=== PATIENT | male | born 1935 | race Caucasian/White ===

== ENCOUNTER 2016-11-16 10:55 | Emergency (ER) | payer MEDICARE ==
[~2016-11-16] VITALS: Ht 177.8 cm; Wt 77.0 kg
[2016-11-16 10:57] VITALS: BP 150/70; PULSE 65; RESP 18; TEMP 97.7; O2SAT 100
[2016-11-16] MEDS ORDERED: CEPH-460 PO (11:12)
[2016-11-16] MEDS ORDERED: BACT800T5 PO (11:12)
--- NOTE | 2016-11-16 11:14 | PD ---
HPI Chief Complaint: Skin Problem Time Seen by Provider: 11:11 Travel History International Travel<30 days: No Contact w/Intl Traveler<30days: No Traveled to known affect area: No History of Present Illness HPI 80-year-old male with pain swelling and erythema and drainage of the left wrist for 1 day. He's had no fever. Pain is decreased after the wound opened up and started draining. Onset gradual. Location skin. Timing constant. Severity is decreasing. PFSH Past Medical History Chemotherapy: No Diabetes: Yes Social History Tobacco Use: Yes Allergies-Medications (Allergen,Severity, Reaction): Coded Allergies: Penicillin (Verified Allergy, Intermediate, RASH/ITCHING, 11/16/16) Reported Meds & Prescriptions Reported Meds & Active Scripts Active Keflex (Cephalexin) 500 Mg Capsule 500 Mg PO Q6H 7 Days Bactrim DS (Sulfamethoxazole-Trimethoprim) 800-160 Mg Tab 1 Tab PO BID Reported Metformin (Metformin HCl) 1,000 Mg Tab 1,000 Mg PO BIDPC With meals Gemfibrozil 600 Mg Tab 600 Mg PO BIDAC Take 30 minutes prior to breakfast and dinner. Glipizide 10 Mg Tab 10 Mg PO BIDAC Take 30 minutes before a meal Pravastatin 10 Mg Tab 10 Mg PO DAILY Bisoprolol-Hydrochlorothiazide 10-6.25 Mg Tab 1 Tab PO DAILY Allopurinol 300 Mg Tab 300 Mg PO DAILY Lisinopril 5 Mg Tab 5 Mg PO DAILY Review of Systems Except as stated in HPI: all other systems reviewed are Neg General / Constitutional: No: Fever Physical Exam Narrative GENERAL: Well-nourished well-developed 81-year-old male no acute distress SKIN: Focused skin assessment warm/dry. There is about 5 cm and Some erythema along the dorsal aspect of the DRUJ with an open central focus draining minimal pus. Minimal tenderness is present. No crepitus present. No lymphangitic streaking or proximal migration of erythema. HEAD: Atraumatic. Normocephalic. EYES: Pupils equal and round. No scleral icterus. No injection or drainage. ENT: No nasal bleeding or discharge. Mucous membranes pink and moist. NECK: Trachea midline. No JVD. CARDIOVASCULAR: Regular rate and rhythm. No murmur appreciated. RESPIRATORY: No accessory muscle use. Clear to auscultation. Breath sounds equal bilaterally. GASTROINTESTINAL: Abdomen soft, non-tender, nondistended. Hepatic and splenic margins not palpable. MUSCULOSKELETAL: No obvious deformities. No clubbing. No cyanosis. No edema. NEUROLOGICAL: Awake and alert. No obvious cranial nerve deficits. Motor grossly within normal limits. Normal speech. PSYCHIATRIC: Appropriate mood and affect; insight and judgment normal. Data Data Last Documented VS Vital Signs Date Time Temp Pulse Resp B/P Pulse Ox O2 Delivery O2 Flow Rate FiO2 11/16/16 10:57 97.7 65 18 150/70 100 Vital signs reviewed Orders Wound Culture And Gram Stain (11/16/16 11:14) [facility] Medical Decision Making Medical Screen Exam Complete: Yes Emergency Medical Condition: Yes Medical Record Reviewed: Yes Differential Diagnosis Abscess, cellulitis, necrotizing fasciitis Narrative Course The patient has cellulitis. There is minimal abscess which is spontaneously draining. Hygiene precautions discussed. Antibiotics as he is diabetic. He is ready for discharge. Return precautions discussed. Diagnosis Primary Impression: Cellulitis and abscess of other specified site Referrals: Primary Care Physician Additional Instructions: IF REDNESS, SWELLING AND TENDERNESS INCREASES RETURN TO ER. IF YOU DEVELOP A FEVER PLEASE RETURN TO THE ER. PLEASE CLEAN THE INFECTED AREA WITH SOAP AND WATER TWICE DAILY. PLEASE TAKE ANTIBIOTICS UNTIL THERE IS NONE LEFT. You have a choice when it comes to health care, and we are glad that you chose [facility]. Hopefully, we have met your expectations on today's visit. You are welcome to return to [facility] at any time, as we are committed to meeting the health care needs of our community. Med/Other Pt SpecificInfo: Prescription(s) given Scripts Cephalexin (Keflex)500 Mg [id number] Mg PO Q6H 7 Days Ref 0 Prov:Jose Wang MD 11/16/16 Sulfamethoxazole-Trimethoprim (Bactrim DS)800-160 Mg Tab1 Tab PO BID #14 TAB Ref 0 Prov:Jose Wang MD 11/16/16 Disposition: 01 DISCHARGE HOME Condition: Stable Jose Wang MD Nov 16, 2016 11:14
[2016-11-16] MEDS ORDERED: BISO10TA2 PO (11:20)
[2016-11-16] MEDS ORDERED: METF1000 PO (11:20)
[2016-11-16] MEDS ORDERED: GEMF600T PO (11:20)
[2016-11-16] MEDS ORDERED: LISI-519 PO (11:20)
[2016-11-16] MEDS ORDERED: GLIP10TA6 PO (11:20)
[2016-11-16] MEDS ORDERED: PRAV10TA PO (11:20)
[2016-11-16] MEDS ORDERED: ALLO300T2 PO (11:20)
== END 2016-11-16 11:39 | disposition home or self-care (01) ==
LOC: PHED 10:55
DX: L03.114 Cellulitis of left upper limb (principal); L02.414 Cutaneous abscess of left upper limb; B95.62 Methicillin resistant Staphylococcus aureus infection as the cause of diseases classified elsewhere; Z72.0 Tobacco use
CPT/HCPCS: 86403; 87070; 87186; 99284